=== PATIENT | male | born 1985 | race American Indian/Alaskan Native ===

== ENCOUNTER 2016-10-12 12:34 | Emergency (ER) | payer SELFPAY ==
--- NOTE | 2016-10-12 14:25 | Emergency Department Report ---
Chief Complaint: Urogenital-Male Stated Complaint: SWOLLEN LEFT TESTICLE - [facility] History of Present Illness: 30-year-old male presents with left-sided scrotum pain and swelling 2 days. He denies fevers/chills/pain with urination/penile discharge/penile pain. - ROS Review of Systems: As noted in HPI - Exam Vital Signs: Vital Signs 10/12/16 13:54 Temperature 98.1 F Pulse Rate 63 Respiratory 20 Rate Blood Pressure 115/73 O2 Sat by Pulse 100 Oximetry Physical Exam: Gen.: Alert and oriented 3, in some mild distress. Unsteady gait due to pain. UROGENITAL: left scrotal mass, left Scrotum tender to palpation, uncircumcised no hernia, no scars or penile discharge. MSE screening note: Focused history and physical exam performed. Due to findings the following was ordered: ED Medical Decision Making - Medical Decision Making Urinalysis ordered., Ultrasound testicular ordered. ED Disposition for MSE Condition: Stable
--- NOTE | 2016-10-12 15:36 | Ultrasound Report ---
ULTRASOUND SCROTAL INDICATION: Left testicular pain, swelling for 2 days. COMPARISON: 11/02/2009. FINDINGS: Longitudinal and transverse grayscale and color flow sonographic evaluation of the scrotum and its contents demonstrates normal testicular contour and echotexture bilaterally without suspicious intrinsic lesions. Preserved bilateral blood flow. Right testicle estimated at 4.5 x 1.9 x 3.4 cm while the left testicle is 4.2 x 2.2 x 2.8 cm. Minimal left peritesticular fluid. Normal right epididymis measures 0.8 cm, image 6. Left epididymis though heterogeneous throughout with head hypervascular and enlarged to approximately 1.9 cm as on images 19-21, amongst others. CONCLUSION: Left epididymitis and minimal left hydrocele without acute testicular sonographic abnormality, as described. Thank you for the opportunity to participate in this patient's care.
[2016-10-12 15:50] LABS: Bilirubin,Urine NEG (Negative); Blood,Urine NEG (Negative); Ketones,Urine NEG (Negative); Leukocyte Esterase,Urine SM (Negative); Mucus,Urine FEW /HPF; Nitrite,Urine NEG (Negative)
--- NOTE | 2016-10-12 16:26 | Emergency Department Report ---
ED Male HPI - General Chief complaint: Urogenital-Male Stated complaint: SWOLLEN LEFT TESTICLE Time Seen by Provider: 10/12/16 16:40 Source: patient Mode of arrival: Ambulatory Limitations: No Limitations - History of Present Illness Initial comments: Patient here reports that he has been having swelling to his left testicle 2 days. Patient said he has a hernia to the same side due to trauma 6 years. Patient has pain to left testicle at 9 out of 10 and said it's throbbing and achy. Denies any urinary burning frequency or urgency. Denies any concern for STD or any penile discharge. Denies any rash to genital area or any lesions. No [id number] tick medication taken. Denies any abdominal or back pain. Denies any fever or chills. Denies any nausea or vomiting MD Complaint: testicle pain, testicle swelling, hernia Onset/Timin -: days(s) Location: left testicle Radiation: none Severity: severe Severity scale (0 -10): 9 Quality: aching, other (throbbing) Consistency: constant Improves with: rest Worsens with: palpation, movement denies: discharge, swelling, mass, rash, urinary retention, blood in urine, dysuria, fever, nausea/vomiting, incontinence - Related Data Sexually active: Yes Previous Rx's Medication Instructions Recorded Last Taken Type Ibuprofen [Motrin] 800 mg PO Q8HR PRN #15 tablet 10/12/16 Unknown Rx Sulfamethoxazole/Trimethoprim 1 each PO BID #20 tablet 10/12/16 Unknown Rx [Bactrim DS TAB] Allergies Allergy/AdvReac Type Severity Reaction Status Date / Time No Known Allergies Allergy Unverified 10/12/16 13:59 ED Review of Systems ROS: Stated complaint: SWOLLEN LEFT TESTICLE Other details as noted in HPI Comment: All other systems reviewed and negative Constitutional: denies: chills, fever Eyes: denies: eye pain, vision change Respiratory: no symptoms reported Cardiovascular: denies: chest pain, palpitations, edema, syncope Gastrointestinal: denies: abdominal pain, nausea, vomiting Genitourinary: testicular pain. denies: urgency, dysuria, frequency, hematuria , discharge, testicular mass Musculoskeletal: denies: back pain, joint swelling, arthralgia, myalgia Skin: denies: rash Neurological: denies: headache, weakness, numbness, paresthesias, confusion, abnormal gait, vertigo ED Past Medical Hx - Past Medical History Previous Medical History?: No - Surgical History Past Surgical History?: No - Family History Family history: no significant - Social History Smoking Status: Former Smoker Substance Use Type: None - Medications Home Medications: Home Medications Medication Instructions Recorded Confirmed Last Taken Type Ibuprofen [Motrin] 800 mg PO Q8HR PRN #15 tablet 10/12/16 Unknown Rx Sulfamethoxazole/Trimethoprim 1 each PO BID #20 tablet 10/12/16 Unknown Rx [Bactrim DS TAB] ED Physical Exam - General Limitations: No Limitations General appearance: alert, in no apparent distress - Head Head exam: Present: atraumatic, normocephalic, normal inspection - Eye Eye exam: Present: normal appearance, PERRL, EOMI. Absent: periorbital swelling , periorbital tenderness Pupils: Present: normal accommodation - ENT ENT exam: Present: normal exam, normal orophraynx, mucous membranes moist, TM's normal bilaterally, normal external ear exam - Neck Neck exam: Present: normal inspection, full ROM. Absent: tenderness, meningismus, lymphadenopathy - Respiratory Respiratory exam: Present: normal lung sounds bilaterally. Absent: respiratory distress, chest wall tenderness - Cardiovascular Cardiovascular Exam: Present: regular rate, normal rhythm, normal heart sounds - GI/Abdominal GI/Abdominal exam: Present: soft, normal bowel sounds. Absent: distended, tenderness, guarding, rebound, rigid, organomegaly, mass, bruit, pulsatile mass , hernia - Rectal Rectal exam: Present: normal inspection - exam: Present: testicular tenderness (left), scrotal swelling. Absent: urethral discharge, circumcision External exam: Present: erythema (prescription for left scrotal erythema), swelling (left scrotal swelling). Absent: lesions, lacerations, ecchymosis, bleeding - Expanded Exam Expanded exam: Testicular Tenderness: Left, Testicular Swelling: Left, Epididymal Tenderness: Left, Cremasteric Reflex Present: Left, Right - Extremities Exam Extremities exam: Present: normal inspection, full ROM, normal capillary refill. Absent: tenderness, pedal edema, joint swelling, calf tenderness - Back Exam Back exam: Present: normal inspection, full ROM. Absent: tenderness, CVA tenderness (R), CVA tenderness (L), muscle spasm, paraspinal tenderness, vertebral tenderness, rash noted - Neurological Exam Neurological exam: Present: alert, oriented X3, normal gait, reflexes normal. Absent: motor sensory deficit - Psychiatric Psychiatric exam: Present: normal affect, normal mood - Skin Skin exam: Present: warm, dry, intact, normal color. Absent: rash ED Course Vital Signs 10/12/16 13:54 Temperature 98.1 F Pulse Rate 63 Respiratory 20 Rate Blood Pressure 115/73 O2 Sat by Pulse 100 Oximetry - Reevaluation(s) Reevaluation #1: 10/12/16 17:00 Patient given Rocephin 1 g IM and emergency room to treat epididymitis. He had no adverse reaction from medication. ED Medical Decision Making - Lab Data Lab Results 10/12/16 Range/Units 15:00 Urine Color Yellow (Yellow) Urine Turbidity Clear (Clear) Urine pH 8.0 H (5.0-7.0) Ur Specific [place] 1.019 (1.003-1.030) Urine Protein 30 mg/dl (Negative) mg/dL Urine Glucose (UA) Neg (Negative) mg/dL Urine Ketones Neg (Negative) mg/dL Urine Blood Neg (Negative) Urine Nitrite Neg (Negative) Urine Bilirubin Neg (Negative) Urine Urobilinogen 4.0 (<2.0) mg/dL Ur Leukocyte Esterase Sm (Negative) Urine WBC (Auto) 1.0 (0.0-6.0) /HPF Urine RBC (Auto) 7.0 (0.0-6.0) /HPF U Epithel Cells (Auto) < 1.0 (0-13.0) /HPF Urine Mucus Few /HPF - Radiology Data Radiology results: report reviewed Ultrasound of testicle revealed epididymitis to left. No vascular compromise. No testicular mass. Left hydrocele - Medical Decision Making ED course: Patient here for left testicular pain for 2 days. Urinalysis revealed no abnormalities. Testicular ultrasound revealed left epididymitis and left hydrocele. No mass or lesion noted. Good blood flow to both testicles. This was communicated with patient that he voiced understanding. Patient was given Rocephin 1 g IM and emergency room without any adverse reaction. I discussed diagnosis and treatment plan. She will be discharged home with prescription for Bactrim DS as he said he cannot afford another medication and Bactrim is free at [employer]. Discharged home stable condition with prescription for Bactrim DS and to increase his fluid intake and wear scrotal support until he is better. Critical care attestation.: If time is entered above; I have spent that time in minutes in the direct care of this critically ill patient, excluding procedure time. ED Disposition Clinical Impression: Epididymitis, left, Left hydrocele, Left testicular pain Disposition: TO HOME OR SELFCARE Is pt being admited?: No Does the pt Need Aspirin: No Condition: Stable Instructions: Epididymitis (ED), Hydrocele (ED), Testicle Pain (ED) Additional Instructions: Please wear scrotal support as this will help to relieve pain You can apply ice to affected area periodically throughout the day to relieve discomfort take antibiotic as prescribed Since you do not have a PCP you can follow-up with [facility] nce she do not have a primary care physician Prescriptions: Ibuprofen [Motrin] 800 mg PO Q8HR PRN #15 tablet PRN Reason: Pain Sulfamethoxazole/Trimethoprim [Bactrim DS TAB] 1 each PO BID #20 tablet Referrals: [facility] [Provider Group] - 2-3 Days [facility] [Outside] - 2-3 Days Forms: STI Treatment and Prevention, Work/School Release Form(ED)
[2016-10-12] MEDS ORDERED: XYLOCAINE 1% MPF 5 mL INFILTRATI ONE (16:46)
[2016-10-12] MEDS ORDERED: ROCEPHIN IM STA (16:46)
[2016-10-12 17:00] VITALS: BP 119/79
== END 2016-10-12 17:45 | disposition home or self-care (01) ==
LOC: ED 12:34
DX: N45.1 Epididymitis (principal); N43.3 Hydrocele, unspecified; Z87.891 Personal history of nicotine dependence
CPT/HCPCS: 81001; 87086; 93975; 96372; 99284; J0696